=== PATIENT | male | born 1935 | race Caucasian/White ===

== ENCOUNTER → 2017-12-12 | Day surgery (SDC) | payer OTHER, MEDICARE ==
[~2017-12-12] VITALS: Ht 170.2 cm; Wt 72.6 kg
[~2017-12-12] MED LIST: ALLOPURINOL100 M1 PO; ALPRAZOLAM1 M2 PO; ASPIRIN325 M2 PO; AUGMENTIN 875-1 EACH PO; BOOST237 ML PO; CLOPIDOGREL75 M1 PO; FUROSEMIDE20 M1 PO; LISINOPRIL20 M1 PO; OMEPRAZOLE20 M2 PO; PERCOCET 325 MG1 TA2 PO; SIMVASTATIN40 M1 PO; SPIRIVA18 MCG INH; TAZTIA XT240 M1 PO; VITAMIN B-121000 MC3 PO
--- NOTE | 2017-12-12 15:44 | RADIOLOGY REPORT ---
EXAMINATION: XR PORTABLE CHEST CLINICAL INFORMATION: Status post navigational bronchoscopy. COMPARISON: Chest done on 10/28/2017. TECHNIQUE: Portable frontal view of the chest was obtained. FINDINGS: Hyperinflated lung field is present bilaterally with superimposed ill-defined masslike opacity at right upper lung field, similar to prior study dated 10/28/2017. There is no evidence of any right-sided pneumothorax or significant perilesional hemorrhage. The heart size is within normal limits. 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 IMPRESSION: Status post right lung bronchoscopy showing no evidence of any right-sided pneumothorax or any significant perilesional hemorrhage around the indexed right upper lobar lung mass.
--- NOTE | 2017-12-12 16:00 | RADIOLOGY REPORT ---
EXAMINATION: C-ARM FLUOROSCOPY ASSISTANCE CLINICAL INFORMATION: Right lung bronchoscopy. COMPARISON: Chest done on 12/12/2017. TECHNIQUE AND FINDINGS: 4 spot radiographs were obtained at the time of right lung bronchoscopy. FLUOROSCOPY TIME: 7 minutes and 23 seconds. IMPRESSION: C-arm fluoroscopy assistance is provided at the time of the bronchoscopy performed by Dr. Jones. Full procedural detail as well as the findings will be dictated by him.
--- NOTE | 2017-12-12 16:49 | Operative Report ---
Operative/Inv Procedure Report Surgery Date: 12/12/17 Name of Procedure: Navigational bronchoscopy with fine-needle aspirate brushings forceps biopsies and bronchoalveolar lavage Pre-Operative Diagnosis: Right upper lobe lung mass Post-Operative Diagnosis: Same Estimated Blood Loss: none Surgeon/Redye Hand: Steph Suero MD Anesthesia: general endotracheal tube Operative/Procedure Note Note: After placement of monitoring lines and induction of general anesthesia a survey bronchoscopy was done through the endotracheal tube. There was some very thick secretions noted and these were cleared easily. There were no endobronchial anatomy abnormalities. The navigational system was then registered and in gauge. The catheter was guided through the posterior segment of the right upper lobe until the documented lesion was reached. Fine-needle aspirates brushings and forceps biopsies were all done. Immediate analysis of the brushings showed evidence of atypical cells. Bronchoalveolar lavage fluid was flushed through the guider catheter and was sent for cytology. The airways were inspected and there was no evidence of hemorrhage. The patient tolerated procedure well and was brought to the recovery room awake and extubated in stable condition. CC: Ayesha BECERRA,Jn Choi; Scotty BECERRA,Saad Sawant
== END ==
LOC: STS 04:40
DX: D38.1 Neoplasm of uncertain behavior of trachea, bronchus and lung (principal); F17.200 Nicotine dependence, unspecified, uncomplicated; R06.00 Dyspnea, unspecified; R05 Cough; E11.9 Type 2 diabetes mellitus without complications; I10 Essential (primary) hypertension; K21.9 Gastro-esophageal reflux disease without esophagitis; I25.10 Atherosclerotic heart disease of native coronary artery without angina pectoris; Z95.5 Presence of coronary angioplasty implant and graft
CPT/HCPCS: 71045; 76000; 88305; J0131; J2250